=== PATIENT | female | born 1965 | race Caucasian/White ===

== ENCOUNTER → 2016-08-05 | Outpatient (CLI) | payer BC ==
[~2016-08-05] MED LIST: ASPEC81 PO; CALC600T36 PO; INDSR/120 PO; LISI-461 PO; MULT-506 PO; NALT1TAB14 PO; OMEP20CA9 PO; POTA10CA28 PO; RIZA10TA18 PO; VITB2100 PO; VTMD1000 PO
[2016-08-05 13:32] LABS: BLOOD UREA NITROGEN 10 mg/dl (7-18); BUN/CREATININE RATIO 13.1 (10-20); CALCIUM 8.6 mg/dl (8.5-10.1); CARBON DIOXIDE 28 mmol/L (21-32); CHLORIDE 107 mmol/L (98-107); CREATININE 0.77 mg/dl (0.60-1.20); GLUCOSE 98 mg/dl (70-99); MAGNESIUM 2.1 mg/dl (1.8-2.4); POTASSIUM 3.6 mmol/L (3.5-5.1); SODIUM 143 mmol/L (136-145)
== END | disposition home or self-care (01) ==
LOC: C.LABMFLN 08:01
PROVIDERS: ATTEND Nurse Practitioner Family
DX: E87.6 Hypokalemia (principal); R56.9 Unspecified convulsions

== ENCOUNTER → 2016-08-12 | Outpatient (CLI) | payer BC ==
--- NOTE | 2016-08-12 15:55 | EEG Procedure Note ---
EEG Procedure Note Date of Service Aug 12, 2016. Start / End Times Start Time: 10:27 AM End Time: 10:47 AM Referring Physician HERBER Hassan and MISHA Kim History 51-year-old female with convulsions. EEG for further evaluation of seizure etiology. Pertinent home medications include [facility] Home Medication List Scheduled Aspirin (Aspirin EC Low Dose), 81 MG PO BID Calcium W/ Vitamin D (Calcium), 1 TAB PO QAM Cholecalciferol (Vitamin D3), 1 TAB PO QAM Lisinopril (Zestril), 10 MG PO BID Multivitamin (Multivitamin), 1 TAB PO QAM Naltrexone HCl-Bupropion HCl (Contrave 8-90 mg), 2 TAB PO BID Potassium Chloride (Micro-K Ext Rel), 10 MEQ PO QAM Propranolol La (Inderal La), 120 MG PO HS Riboflavin (Vitamin B-2), 2 TAB PO QAM Scheduled PRN Omeprazole (Prilosec), 20 MG PO QAM PRN for HEARTBURN Rizatriptan Benzoate (Maxalt), 10 MG PO DIRECTED PRN for Migraine Description This is a 21 electrode EEG with a single channel dedicated to limited EKG. The electrodes were placed in accordance with the International 10-20 system. At the start of the recording the patient was in an awake state. Background was well organized and composed of symmetric mixed alpha and beta frequencies. There was a symmetric well-formed moderate amplitude 9 Hz posterior dominant rhythm that was reactive to eye opening and closure. Hyperventilation was not done. Intermittent photic stimulation at various frequencies produced no abnormalities. Sleep was indicated by vertex waves and symmetric sleep spindles. Interpretation This is a normal awake and asleep routine EEG. There was no electrographic seizures or epileptiform discharges. Clinical Correlation A normal EEG does not rule out epilepsy if there is a strong clinical suspicion.
== END | disposition home or self-care (01) ==
LOC: C.NEUR 10:05
PROVIDERS: ATTEND Nurse Practitioner Family
DX: R56.9 Unspecified convulsions (principal)

== ENCOUNTER → 2016-10-13 | Outpatient (CLI) | payer BC ==
[~2016-10-13] MED LIST changes: +HYDR12.55 PO; +LOSA50TA6 PO; +TOPI1CAP2 PO
--- NOTE | 2016-10-13 17:29 | EEG Procedure Note ---
EEG Procedure Note Date of Service October 13, 2016. Start / End Times Start Time: 1:53 PM End Time: 2:13 PM Referring Physician MISHA Esposito History This is a 51-year-old female who presents with a history of seizure. Patient was recently taken off Keppra month ago. EEG for further evaluation of underlying seizure/epilepsy. Home Medication List Scheduled Aspirin (Aspirin EC Low Dose), 81 MG PO BID Calcium W/ Vitamin D (Calcium), 1 TAB PO QAM Cholecalciferol (Vitamin D3), 1 TAB PO QAM Lisinopril (Zestril), 10 MG PO BID Multivitamin (Multivitamin), 1 TAB PO QAM Naltrexone HCl-Bupropion HCl (Contrave 8-90 mg), 2 TAB PO BID Potassium Chloride (Micro-K Ext Rel), 10 MEQ PO QAM Propranolol La (Inderal La), 120 MG PO HS Riboflavin (Vitamin B-2), 2 TAB PO QAM Scheduled PRN Omeprazole (Prilosec), 20 MG PO QAM PRN for HEARTBURN Rizatriptan Benzoate (Maxalt), 10 MG PO DIRECTED PRN for Migraine Description This is a 21 electrode EEG with a single channel dedicated to limited EKG. The electrodes were placed in accordance with the International 10-20 system. At the start of the recording the patient was in an awake state. Background was well organized and composed of symmetric mixed alpha and beta frequencies. There was a symmetric well-formed moderate amplitude 8-9 Hz posterior dominant rhythm that was reactive to eye opening and closure. Hyperventilation was not done. Intermittent photic stimulation at various frequencies produced no abnormalities. Sleep was indicated by vertex waves and symmetric sleep spindles. There was one episode of 1-2 seconds of generalized polymorphic theta slowing during the awake state, that may be assisted sales representative of drowsiness. Interpretation This is a normal awake and asleep routine EEG. There was no electrographic seizures or epileptiform discharges. Clinical Correlation A normal EEG does not rule out epilepsy if there is a strong clinical suspicion.
== END | disposition home or self-care (01) ==
LOC: C.NEUR 13:39
PROVIDERS: ATTEND Physician Assistant
DX: R56.9 Unspecified convulsions (principal)

== ENCOUNTER → 2017-04-07 | Day surgery (SDC) | payer BC ==
[2017-03-26 07:52] VITALS: Ht 172.7 cm; Wt 116.4 kg
[~2017-04-07] VITALS: Ht 172.7 cm; Wt 116.4 kg
[~2017-04-07] MED LIST changes: -ASPEC81 PO; +ATROPINE SULFATE 0.1 MG/ML 5ML SYR IV PRN; +EpHEDrine SULFATE INJ 50 MG/ML AMP IV PRN; +LIDOCAINE HCL 2% 2 ML VIAL (20MG/ML) ONE; -LISI-461 PO; -NALT1TAB14 PO; +PROPOFOL IV EMULSION 10 MG/ML 20 ML VIAL IV ONE; +SODIUM CHLORIDE 0.9% 500ML 500 ML IV ONE
--- NOTE | 2017-04-07 14:12 | Endo History and Physical ---
History & Physical Date of Service: Apr 07, 2017. Chief Complaint: SCREENING Referring Physician: MIMI CRAVEN History of Present Illness FH colon cancer Past Medical History Reflux, Hypertension Past Surgical History Hx Cardiac Surgery: No Hx Internal Defibrillator: No Hx Pacemaker: No Hx Abdominal Surgery: Yes (PARTIAL HYSTERECTOMY, ) Hx of Implantable Prosthesis: No Hx Post-Op Nausea and Vomiting: Yes Hx Cancer Surgery: No Hx Thoracic Surgery: No Hx Orthopedic: Yes (LEFT KNEE ARTHROSCOPY, RT FOOT RECONSTRUCTION) Hx Urinary Tract Surgery: No Family History Colon CA Social History Smoking Status: Never Smoker Hx Substance Use: No Hx Alcohol Use: No (RARELY) Allergies Coded Allergies: No Known Allergies (Verified , NONE, 04/07/17) Current Medications Reported Home Medications Medications Dose Route/Sig Max Daily Dose Days Date Category Trokendi Xr (Topiramate) 50 Mg Cap 1 Cap PO HS 03/26/17 Reported Hydrochlorothiazide 12.5 Mg Tab 1 Tab PO QAM 90 03/26/17 Reported Cozaar (Losartan Potassium) 50 Mg Tab 50 Mg PO QAM 03/26/17 Reported Micro-K Ext Rel (Potassium Chloride) 10 Meq Capcr 10 Meq PO BID 08/27/15 Reported Inderal La (Propranolol HCl) 120 Mg Capcr 120 Mg PO HS 08/27/15 Reported Maxalt (Rizatriptan Benzoate) 10 Mg Tab 10 Mg PO DIRECTED PRN 03/05/15 Reported Prilosec (Omeprazole) 20 Mg Cap 20 Mg PO QAM PRN 03/05/15 Reported Calcium (Calcium W/ Vitamin D) 1 Tab Tab 1 Tab PO QAM 03/05/15 Reported Vitamin D3 (Cholecalciferol) 1,000 Inter.unit Tab 1 Tab PO QAM 03/05/15 Reported Vitamin B-2 (Riboflavin) 100 Mg Tab 2 Tab PO QAM 03/05/15 Reported Multivitamin (Multivitamins) Tab 1 Tab PO QAM 06/19/09 Reported Vital Signs Weight (Kilograms): 116.36 Height (Feet): 5 Height (Inches): 8 Date Time Temp Pulse Resp B/P (MAP) Pulse Ox O2 Delivery O2 Flow Rate FiO2 04/07/17 13:51 36.9 59 16 131/72 (91) 98 Room Air Physical Exam General Appearance: WD/WN, no apparent distress Respiratory/Chest: Auscultation: breath sounds normal Cardiovascular: Heart Auscultation: RRR Abdomen: Bowel Sounds: normal Inspection & Palpation: soft, non-distended, no tenderness, guarding & rebound Assessment and Plan colonoscopy consent obtained
--- NOTE | 2017-04-07 14:35 | Discharge Instructions ---
Endoscopy Patient Instructions Date / Procedure(s) Performed Apr 07, 2017. Colonoscopy Allergy Information Coded Allergies: No Known Allergies (Verified , NONE, 04/07/17) Discharge Date / Findings Apr 07, 2017. Nl colon - hemorrhoids Medication Instructions Restart Stopped Medication(s): Reported Home Medications Medications Dose Route/Sig Max Daily Dose Days Date Category Trokendi Xr (Topiramate) 50 Mg Cap 1 Cap PO HS 03/26/17 Reported Hydrochlorothiazide 12.5 Mg Tab 1 Tab PO QAM 90 03/26/17 Reported Cozaar (Losartan Potassium) 50 Mg Tab 50 Mg PO QAM 03/26/17 Reported Micro-K Ext Rel (Potassium Chloride) 10 Meq Capcr 10 Meq PO BID 08/27/15 Reported Inderal La (Propranolol HCl) 120 Mg Capcr 120 Mg PO HS 08/27/15 Reported Maxalt (Rizatriptan Benzoate) 10 Mg Tab 10 Mg PO DIRECTED PRN 03/05/15 Reported Prilosec (Omeprazole) 20 Mg Cap 20 Mg PO QAM PRN 03/05/15 Reported Calcium (Calcium W/ Vitamin D) 1 Tab Tab 1 Tab PO QAM 03/05/15 Reported Vitamin D3 (Cholecalciferol) 1,000 Inter.unit Tab 1 Tab PO QAM 03/05/15 Reported Vitamin B-2 (Riboflavin) 100 Mg Tab 2 Tab PO QAM 03/05/15 Reported Multivitamin (Multivitamins) Tab 1 Tab PO QAM 06/19/09 Reported Reported Home Medications Medications Dose Route/Sig Max Daily Dose Days Date Category Trokendi Xr (Topiramate) 50 Mg Cap 1 Cap PO HS 03/26/17 Reported Hydrochlorothiazide 12.5 Mg Tab 1 Tab PO QAM 90 03/26/17 Reported Cozaar (Losartan Potassium) 50 Mg Tab 50 Mg PO QAM 03/26/17 Reported Micro-K Ext Rel (Potassium Chloride) 10 Meq Capcr 10 Meq PO BID 08/27/15 Reported Inderal La (Propranolol HCl) 120 Mg Capcr 120 Mg PO HS 08/27/15 Reported Maxalt (Rizatriptan Benzoate) 10 Mg Tab 10 Mg PO DIRECTED PRN 03/05/15 Reported Prilosec (Omeprazole) 20 Mg Cap 20 Mg PO QAM PRN 03/05/15 Reported Calcium (Calcium W/ Vitamin D) 1 Tab Tab 1 Tab PO QAM 03/05/15 Reported Vitamin D3 (Cholecalciferol) 1,000 Inter.unit Tab 1 Tab PO QAM 03/05/15 Reported Vitamin B-2 (Riboflavin) 100 Mg Tab 2 Tab PO QAM 03/05/15 Reported Multivitamin (Multivitamins) Tab 1 Tab PO QAM 06/19/09 Reported Provider Instructions Activity Restrictions - No exercising or heavy lifting for 24 hours. - Do not drink alcohol the day of the procedure. - Do not drive a car or operate machinery until the day after the procedure. - Do not make any important decisions or sign important papers in 24 hours after the procedure. Following Day: - Return to full activity which may include returning to work/school. Diet Start your diet with liquids and light foods (jello, soup, juice, toast). Then eat your usual diet if not nauseated. Treatment For Common After Affects For mild abdominal pain, bloating, or excessive gas: - Rest - Eat lightly - Lie on right side Follow-Up Information Follow-up with MIMI CRAVEN as scheduled Anesthesia Information What You Should Know You have had a procedure that required some medicine to reduce anxiety and discomfort. This treatment is called moderate sedation. After receiving the treatment, you may be sleepy, but you will be able to breathe on your own. The effects of the treatment may last for several hours. Follow these instructions along with Activity/Diet recommendations noted above: * Do NOT do anything where dizziness or clumsiness would be dangerous. * Rest quietly at home today, then you can be up and about tomorrow. * Have a responsible person stay with you the rest of today. * You may have had an I.V. today. If so, you may take the dressing off later today. Recommendations Call your doctor if: * Trouble breathing * Continuous vomiting for more than 24 hours * Temperature above 101 degrees * Severe abdominal pain or bloating * Pain not relieved by pain medicine ordered * There is increased drainage or redness from any incision * A large amount of rectal bleeding greater than 2-3 tablespoons. (If you had a polyp/s removed or have hemorrhoids, a small amount of blood - from the rectum is to be expected.) * You have any unanswered questions or concerns. IN THE EVENT OF A SERIOUS EMERGENCY, GO TO THE NEAREST EMERGENCY ROOM Your discharge instructions were prepared by provider Samuel Medrano. Patient Instructions Signature Page Meg Koo Patient (or Guardian) Signature/Date: I have read and understand the instructions given to me by my caregivers. Caregiver/RN/Doctor Signature/Date: The above-named patient and/or guardian has received patient instructions on this date. + Original Patient Signature Page (only) stays with chart. Please make copy for patient.
--- NOTE | 2017-04-07 14:41 | Anesthesiology Progress Note ---
Anesthesia Post Op Note Date & Time Apr 07, 2017 at 14:40 Vital Signs Pain Intensity: 0 Vital Signs Past 12 Hours Date Time Temp Pulse Resp B/P (MAP) Pulse Ox O2 Delivery O2 Flow Rate FiO2 04/07/17 13:51 36.9 59 16 131/72 (91) 98 Room Air Notes Mental Status: alert / awake / arousable, participated in evaluation Pt Amnestic to Procedure: Yes Nausea / Vomiting: adequately controlled Pain: adequately controlled Airway Patency, RR, SpO2: stable & adequate BP & HR: stable & adequate Hydration State: stable & adequate Anesthetic Complications: no major complications apparent
[2017-04-07 15:10] VITALS: BP 130/79; PULSE 60; O2SAT 98
--- NOTE | 2017-04-07 20:25 | GI REPORT ---
Procedure Date: 04/07/2017 2:18 PM Procedure: Colonoscopy Indications: This is the patient's first colonoscopy, Family history of colon cancer in a first-degree relative Medicines: Propofol per Anesthesia Complications: No immediate complications. Estimated blood loss: None. Estimated Blood Loss: Estimated blood loss: none. Procedure: Pre-Anesthesia Assessment: - Prior to the procedure, a History and Physical was performed, and patient medications and allergies were reviewed. The patient's tolerance of previous anesthesia was also reviewed. The risks and benefits of the procedure and the sedation options and risks were discussed with the patient. All questions were answered, and informed consent was obtained. Prior Anticoagulants: The patient has taken no previous anticoagulant or antiplatelet agents. ASA Grade Assessment: II - A patient with mild systemic disease. After reviewing the risks and benefits, the patient was deemed in satisfactory condition to undergo the procedure. After I obtained informed consent, the scope was passed under direct vision. Throughout the procedure, the patient's blood pressure, pulse, and oxygen saturations were monitored continuously. The Scope was introduced through the anus and advanced to the terminal ileum, with identification of the appendiceal orifice and IC valve. The colonoscopy was performed without difficulty. The patient tolerated the procedure well. The quality of the bowel preparation was good. Findings: The perianal and digital rectal examinations were normal. Pertinent negatives include normal sphincter tone, no palpable rectal lesions and no anal lesion or abnormality was detected. The colon (entire examined portion) appeared normal. The terminal ileum appeared normal. The retroflexed view of the distal rectum and anal verge was normal and showed no anal or rectal abnormalities. Non-bleeding internal hemorrhoids were found during retroflexion. The hemorrhoids were mild. Impression: - The entire examined colon is normal. - The examined portion of the ileum was normal. - The distal rectum and anal verge are normal on retroflexion view. - Non-bleeding internal hemorrhoids. - No specimens collected. Recommendation: - Discharge patient to home (ambulatory). - Resume regular diet. - Continue present medications. - Repeat colonoscopy in 5 years for surveillance. - Return to referring physician as previously scheduled. MD Samuel Lang MD 04/07/2017 2:40:02 PM This report has been signed electronically. Note Initiated On: 04/07/2017 2:18 PM I attest to the content of the Intraoperative Record and orders documented therein, exceptions below
== END | disposition home or self-care (01) ==
LOC: C.GI 12:50
PROVIDERS: ATTEND Internal Medicine Gastroenterology
DX: Z12.11 Encounter for screening for malignant neoplasm of colon (principal); Z80.0 Family history of malignant neoplasm of digestive organs; K64.8 Other hemorrhoids; K21.9 Gastro-esophageal reflux disease without esophagitis; I10 Essential (primary) hypertension; Z90.711 Acquired absence of uterus with remaining cervical stump; E66.9 Obesity, unspecified; Z86.69 Personal history of other diseases of the nervous system and sense organs